=== PATIENT | male | born 1960 | race Caucasian/White ===

== ENCOUNTER 2020-04-11 19:44 | Emergency (ER) | payer OTHER ==
[2020-04-11 21:24] LABS: BASOPHIL 0.4 % (0-2); EOSINOPHIL 1.3 % (0-5); HCT 41.5 % (42.0-52.0); HGB 13.9 g/dl (13.2-18.0); LYMPHOCYTE 28.2 % (15-48); MCH 32.9 pg (25.0-31.0); MCHC 33.5 g/dL (32.0-36.0); MCV 98.3 fL (78.0-100.0); MONOCYTE 6.5 % (0-12); MPV 10.1 fL (6.0-9.5); NEUTROPHIL 63.3 % (41-80); NRBC 0; PLT 215 K/uL (150-400); RBC 4.22 M/uL (4.70-6.00); RDW 12.5 % (11.5-14.0); WBC 7.8 K/uL (4.0-10.5)
[2020-04-11 21:28] LABS: INR 1.08 (0.9-1.2); PROTHROMBIN TIME 13.3 SECONDS (11.4-13.6); PTT 29.3 SECONDS (22.2-34.7)
[2020-04-11 21:30] LABS: D-DIMER 0.4 ug/mLFEU (0.00-0.41)
[2020-04-11 21:38] LABS: LACTIC ACID 1.4 mmol/L (0.4-1.9)
[2020-04-11 21:44] LABS: PRO-BNP 180 pg/mL (<125)
[2020-04-11 21:45] LABS: IRON % SATURATION 27.1 %SAT (20-50)
[2020-04-11 21:50] LABS: ALBUMIN 3.6 g/dL (3.4-5.0); BILIRUBIN - TOTAL 0.5 mg/dL (0.2-1.0); BUN/CREAT RATIO (CALC) 16.7 RATIO; C-REACTIVE PROTEIN 0.4 mg/dL (<=0.90); CREATININE 0.96 mg/dL (0.67-1.17); GLOBULIN (CALCULATION) 3.9 g/dL; MAGNESIUM 2.1 mg/dL (1.8-2.4); POTASSIUM 3.6 mmol/L (3.5-5.1); TOTAL PROTEIN 7.5 g/dL (6.4-8.2)
[2020-04-11] MEDS ORDERED: VIBRAMYCIN100 MG PO (23:39)
[2020-04-11] MEDS ORDERED: MEDROL 4MG DOSEP4 MG PO (23:39)
[2020-04-11] MEDS ORDERED: VENTOLIN HFA IN18 GM INH (23:39)
== END 2020-04-11 23:55 | disposition home or self-care (01) ==
LOC: FER 19:44
PROVIDERS: Emergency Medicine
DX: J44.9 Chronic obstructive pulmonary disease, unspecified (principal); R07.89 Other chest pain; I45.10 Unspecified right bundle-branch block; F17.210 Nicotine dependence, cigarettes, uncomplicated
CPT/HCPCS: 36415; 36600; 71250; 80053; 82728; 82803; 83540; 83550; 83605; 83615; 83735; 83880; 84145; 84484; 85025; 85379; 85610; 85730; 86140; 87040; 93005; 94640; 94664

== ENCOUNTER 2020-06-28 19:30 | Emergency (ER) | payer OTHER ==
[~2020-06-28 19:30] MED LIST: MEDROL 4MG DOSEP4 MG PO; VENTOLIN HFA IN18 GM INH; VIBRAMYCIN100 MG PO
[2020-06-28 19:54] LABS: BASOPHIL 0.4 % (0-2); EOSINOPHIL 1.4 % (0-5); HCT 38.2 % (42.0-52.0); HGB 13.2 g/dl (13.2-18.0); LYMPHOCYTE 32.4 % (15-48); MCH 33.6 pg (25.0-31.0); MCHC 34.6 g/dL (32.0-36.0); MCV 97.2 fL (78.0-100.0); MONOCYTE 6.9 % (0-12); MPV 10.3 fL (6.0-9.5); NEUTROPHIL 58.8 % (41-80); NRBC 0; PLT 223 K/uL (150-400); RBC 3.93 M/uL (4.70-6.00); RDW 12.3 % (11.5-14.0); WBC 7.2 K/uL (4.0-10.5)
[2020-06-28 20:06] LABS: INR 1.06 (0.9-1.2); PROTHROMBIN TIME 13.1 SECONDS (11.4-13.6)
[2020-06-28 20:07] LABS: PTT 28.3 SECONDS (22.2-34.7)
[2020-06-28 20:13] LABS: ALBUMIN 3.6 g/dL (3.4-5.0); BILIRUBIN - TOTAL 0.6 mg/dL (0.2-1.0); BUN/CREAT RATIO (CALC) 20.6 RATIO; CREATININE 1.02 mg/dL (0.67-1.17); GLOBULIN (CALCULATION) 3.7 g/dL; POTASSIUM 3.6 mmol/L (3.5-5.1); TOTAL PROTEIN 7.3 g/dL (6.4-8.2)
[2020-06-28 20:41] LABS: BILIRUBIN NEGATIVE (NEGATIVE); BLOOD NEGATIVE Ery/uL (NEGATIVE); CLARITY CLEAR (CLEAR); COLOR YELLOW (YELLOW); GLUCOSE (U) NORMAL (NORMAL); LEUKOCYTES NEGATIVE Leu/uL (NEGATIVE); NITRITE NEGATIVE (NEGATIVE); PROTEIN NEGATIVE (NEGATIVE); SPECIFIC GRAVITY <=1.005 (1.001-1.030); UROBILINOGEN 0.2 mg/dL (0.2-1.0); pH 5.5 (5.0-9.0)
== END 2020-06-29 00:45 | disposition other institution (70) ==
LOC: FER 19:30
PROVIDERS: Emergency Medicine
DX: I20.0 Unstable angina (principal); F10.129 Alcohol abuse with intoxication, unspecified; N40.1 Benign prostatic hyperplasia with lower urinary tract symptoms; R39.12 Poor urinary stream; I45.10 Unspecified right bundle-branch block; F17.210 Nicotine dependence, cigarettes, uncomplicated; Z98.890 Other specified postprocedural states; Z20.822 Contact with and (suspected) exposure to COVID-19
CPT/HCPCS: 36415; 70450; 71045; 80053; 81003; 83735; 83880; 84484; 85025; 85610; 85730; 93005; 96365; 96375; J1953; J2060; J3411; J3490; J7030; U0002

== ENCOUNTER 2021-04-03 16:12 | Emergency (ER) | payer OTHER ==
[2021-04-03 19:34] LABS: BASOPHIL 0.5 % (0-2); EOSINOPHIL 2.8 % (0-5); HCT 40.9 % (42.0-52.0); HGB 13.4 g/dl (13.2-18.0); LYMPHOCYTE 54.8 % (15-48); MCH 32.5 pg (25.0-31.0); MCHC 32.8 g/dL (32.0-36.0); MCV 99.3 fL (78.0-100.0); MONOCYTE 5.7 % (0-12); MPV 9.9 fL (6.0-9.5); NEUTROPHIL 35.9 % (41-80); NRBC 0; PLT 177 K/uL (150-400); RBC 4.12 M/uL (4.70-6.00); RDW 13.2 % (11.5-14.0)
[2021-04-03 19:40] LABS: WBC 3.9 K/uL (4.0-10.5)
[2021-04-03 19:48] LABS: ALBUMIN 3.5 g/dL (3.4-5.0); BILIRUBIN - TOTAL 0.5 mg/dL (0.2-1.0); BUN/CREAT RATIO (CALC) 17.7 RATIO; CREATININE 0.79 mg/dL (0.67-1.17); POTASSIUM 4.7 mmol/L (3.5-5.1); TOTAL PROTEIN 7.5 g/dL (6.4-8.2)
[2021-04-03 20:46] LABS: CORONAVIRUS 2019 SARS-COV-2 NEGATIVE (NEGATIVE); INFLUENZA A NAA POSITIVE (NEGATIVE)
[2021-04-03] MEDS ORDERED: MEDROL 4MG DOSEP4 MG PO (22:09)
[2021-04-03] MEDS ORDERED: AUGMENTIN 875-1 EACH PO (22:09)
== END 2021-04-03 22:20 | disposition home or self-care (01) ==
LOC: FER 16:12
PROVIDERS: Internal Medicine
DX: J44.0 Chronic obstructive pulmonary disease with (acute) lower respiratory infection (principal); J18.9 Pneumonia, unspecified organism; I10 Essential (primary) hypertension; Z20.822 Contact with and (suspected) exposure to COVID-19; Z79.51 Long term (current) use of inhaled steroids
CPT/HCPCS: 36415; 71045; 80053; 85025; 94640; 94664; J1100; J2405; J7030; U0002

== ENCOUNTER 2021-12-19 01:57 | Emergency (ER) | payer OTHER ==
[~2021-12-19 01:57] MED LIST changes: +AUGMENTIN 875-1 EACH PO
[2021-12-19] MEDS ORDERED: VICODIN 10/3251 EACH PO (04:49)
== END 2021-12-19 05:14 | disposition home or self-care (01) ==
LOC: FER 01:57
DX: S13.9XXA Sprain of joints and ligaments of unspecified parts of neck, initial encounter (principal); M50.31 Other cervical disc degeneration, high cervical region; I10 Essential (primary) hypertension; F17.210 Nicotine dependence, cigarettes, uncomplicated; Y04.2XXA Assault by strike against or bumped into by another person, initial encounter
CPT/HCPCS: 72125; 96372; J2270; J2405